=== PATIENT | male | born 1995 | race Two or more races ===

== ENCOUNTER 2016-05-18 22:45 | Emergency (ER) | payer OTHER ==
[2016-05-19] MEDS ORDERED: ONDANSETRON 4 MG ODT TAB ONE (00:57)
== END 2016-05-19 01:07 | disposition home or self-care (01) ==
LOC: ED 22:45
DX: B08.4 Enteroviral vesicular stomatitis with exanthem (principal); R05 Cough; R11.0 Nausea
CPT/HCPCS: 99283 ×2; A9270